=== PATIENT | male | born 1965 | race Caucasian/White ===

== ENCOUNTER → 2018-09-29 | Outpatient (CLI) | payer OTHER ==
--- NOTE | 2018-09-29 14:34 | CT ---
EXAMINATION TYPE: CT abdomen pelvis wo con DATE OF EXAM: 09/29/2018 COMPARISON: None HISTORY: Left flank pain, hx of kidney stones CT DLP: 1006 mGycm Automated exposure control for dose reduction was used. TECHNIQUE: Helical acquisition of images was performed from the lung bases through the pelvis. FINDINGS: LUNG BASES: No significant abnormality is appreciated. LIVER/GB: Hepatic parenchyma is diffusely hypoattenuated in comparison to that of the spleen, most co mmonly seen in hepatic steatosis. This finding limits evaluation for hepatic masses. No gross evidenc e of hepatic mass is seen. No intrahepatic biliary ductal dilatation. Cholelithiasis is noted within the partially contracted gallbladder. PANCREAS: No significant abnormality is seen. SPLEEN: No significant abnormality is seen. ADRENALS: No significant abnormality is seen. KIDNEYS: There are 2 nonobstructing left renal calculi measuring 2 mm each and a 1.2 cm exophytic lef t renal cyst. Additional upper pole ill-defined left renal cyst is seen on coronal image 57. There is a 2 mm calculus within the urinary bladder just distal to the left ureterovesicular junction. Very m ild blunting of the left minor calyces are seen without judith hydronephrosis of the left kidney. Righ t kidney is unremarkable without hydronephrosis or nephrolithiasis. No perinephric fat stranding is s een. FREE AIR: No free air is visualized ADENOPATHY: No greater than 1 cm short axis lymph node in the abdomen or pelvis. URINARY BLADDER: Punctate calculus as described above. OSSEOUS STRUCTURES: Few nonspecific pelvic punctate sclerotic foci are seen each measuring approxima tely 1 mm. These are nonspecific although could relate to small bone islands. BOWEL: Appendix is surgically absent. No dilated large or small bowel. Few scattered colonic diverti cula are seen. Mild degree fecal stasis. Small ventral fat filled abdominal hernia is wide necked and supraumbilical. IMPRESSION: 1. THERE IS A 2 MM CALCULUS WITHIN THE URINARY BLADDER JUST DISTAL TO THE LEFT URETEROVESICULAR JUNCT ION. MILD BLUNTING OF THE LEFT CALYCES ARE SEEN WITHOUT JUDITH HYDRONEPHROSIS. 2. ADDITIONAL NONOBSTRUCTING LEFT RENAL CALCULI. 3. SIGMOID DIVERTICULOSIS WITHOUT EVIDENCE OF ACUTE DIVERTICULITIS. 4. MODERATE GRADE HEPATIC STEATOSIS. 5. CHOLELITHIASIS.
== END | disposition home or self-care (01) ==
LOC: RADCTMAIN 14:06
PROVIDERS: ATTEND Nurse Practitioner Adult Health
DX: N21.0 Calculus in bladder (principal); N20.0 Calculus of kidney; K57.30 Diverticulosis of large intestine without perforation or abscess without bleeding; K76.0 Fatty (change of) liver, not elsewhere classified; K80.20 Calculus of gallbladder without cholecystitis without obstruction
CPT/HCPCS: 74176

== ENCOUNTER → 2021-02-21 | Outpatient (CLI) | payer OTHER ==
--- NOTE | 2021-02-21 19:21 | CONS ---
CONSULTATION REASON FOR CONSULTATION: Sleep apnea. This 55-year-old male patient, referred to me for sleep apnea evaluation. His has noted that the patient is snoring loud and at times he is has been gasping for air. The patient goes to bed around 11:30 pm, wakes up 6:45 am in the morning. At times, he sleeps longer yet never the less, he is not feeling the refreshment that he is supposed to get from sleeping. He is waking up tired. During the day he does not have any major hypersomnia or sleepiness. He does not fall asleep during meetings or working hours. Onsted score is at 5. He works as an IT at [employer] He has pressures and oral appliance. He did not use it. His weight has been stable over the years with some modest few pounds weight gain. No sleep paralysis. No hallucinations. No cataplexy. No restlessness in lower extremities. No anxiety. No depression. No comorbidities. PAST MEDICAL HISTORY: Negative. PAST SURGICAL HISTORY: Appendectomy, vasectomy, kidney stones. DRUG ALLERGIES: PENICILLINS. OUTPATIENT MEDICATIONS: None. SOCIAL HISTORY: Nonsmoker. No history of alcoholism. No history of IV drugs. FAMILY HISTORY: Father had lymphoma and prostate cancer. Mother has hypertension, coronary artery disease and bypass surgery. REVIEW OF SYSTEMS: Fourteen-point review of system was done and positive findings are mentioned in history of present illness. PHYSICAL EXAMINATION: BP is 123/80, pulse rate is 61, respirations 16, temperature 97.2. Saturation 99% on room air. BMI 33.5. Onsted score is at 5. Neck size 15.5 inches. GENERAL appearance: Calm, comfortable. Head is atraumatic, normocephalic. NECK: Supple. There is no JVD. No goiter or neck masses. Slight overbite. Mallampati class 3. LUNGS: Clear to auscultation. HEART: Heart sounds are regular rate and rhythm. Normal S1, S2. No S3, S4. No murmurs. ABDOMEN: Soft. Nontender. No organomegaly. EXTREMITIES: No edema, no cyanosis or clubbing. NEUROLOGICALLY: The patient is awake and alert. There is no focal neurological deficits. IMPRESSION: 1. Questionable obstructive sleep apnea under investigation. Symptoms are essentially related to snoring. The patient has a slight overbite. Mallampati class 3. Onsted score is at 5. Body mass index is 33.5. Consider primary snoring versus underlying sleep breathing disorder. No other major comorbidities. PLAN: 1. Home sleep study testing. 2. Weight loss. 3. Avoid alcohol drinking and sleep on the side. 4. Consider on oral appliance if the patient turns out to have a mild case of obstructive sleep apnea and we can work it out with his dentist. CPAP therapy if the home sleep study showed severe obstructive sleep apnea. A final decision will be done based on the results of sleep study. MMODL / IJN: [id number] /
== END ==
LOC: SLEEP 16:15
PROVIDERS: ATTEND Internal Medicine Critical Care Medicine
DX: R06.83 Snoring (principal); Z88.0 Allergy status to penicillin
CPT/HCPCS: 99211

== ENCOUNTER → 2021-06-27 | Outpatient (CLI) | payer OTHER ==
--- NOTE | 2021-06-27 16:16 | PN ---
PROGRESS NOTE SLEEP CENTER PROGRESS NOTE: Singh presented to the sleep center back in March of 2021 for symptoms of fatigue and some limited sleepiness. Goodland score was only 5. He denied having any major hypersomnia at that point. He works for an [employer] company and he denied having any major comorbidities. His weight has remained stable. Note that he underwent a home sleep study that was completed on 03/21/2021. At that time the patient was found to have moderate to severe disease with an AHI of 17.8 and the patient demonstrated significant nocturnal oxygen desaturation where the pulse ox was at or below 88% for 50 minutes of the sleep time, accounting for 10% of the overall sleep study. His minimum pulse ox was 64%. I contacted the patient with the results back then and I offered him CPAP therapy versus an oral appliance. He was not interested in treatment, knowing that he was not having major symptoms at that point. Since then, the patient's condition has gotten worse. The patient is coming in for further advice regarding sleep apnea; he seems to be much more interested in CPAP therapy. His Goodland score remains 5. No angina. No palpitations. No shortness of breath. No chest pain. No heartburn. No other new complaints otherwise. PHYSICAL EXAMINATION: VITAL SIGNS: BP is 138/86, pulse 66, respirations 16, temperature 97.8, saturation 98% on room air. Height is 5 feet 1 inch, weight is 232, BMI is 32.3. GENERAL APPEARANCE: Calm, comfortable. HEAD: Atraumatic, normocephalic. Neck is supple. No JVD. No goiter or neck masses. Mallampati class IV. LUNGS: Clear to auscultation. Heart sounds are regular rate and rhythm. Normal S1, S2. No S3, S4. No murmurs. ABDOMEN: Soft, nontender. No organomegaly. EXTREMITIES: No edema. No cyanosis or clubbing. IMPRESSION: 1. Obstructive sleep apnea, symptomatic. AHI of 18. The patient's home sleep study was completed on 03/21/2021 and the patient is interested in CPAP therapy at this point, as his symptoms of sleep apnea have gotten significantly worse since his last evaluation 3 months ago. 2. Nocturnal oxygen desaturation with a minimum pulse ox of 63% and the patient spending approximately 50% of his sleep time at a pulse ox of 88% or below. 3. Loud snoring. 4. Chronic hypersomnia. 5. Obesity with a BMI of 32.3 with interval weight loss of a few pounds. PLAN: 1. Proceed with CPAP therapy. The patient will be set at a minimum pressure of 5, maximum of 15. 2. Offer the patient a DreamWear gel pillow a nose mask. We will also look at alternatives, including the possibility of full-face mask. 3. The patient will obtain a CPAP machine. The patient will see me back in 30 to 90 days to assess clinical response and compliance. Further adjustments of his treatment will be done here in the sleep center. The patient is hopeful that his symptoms of fatigue and sleepiness will improve while on CPAP therapy. I am hoping the same. Will monitor his progress. Will continue to follow. Will make further recommendations based on his symptoms. LEIGH ANN / MERCY: [id number] /
== END ==
LOC: SLEEP 13:03
PROVIDERS: ATTEND Internal Medicine Critical Care Medicine
DX: G47.33 Obstructive sleep apnea (adult) (pediatric) (principal); G47.36 Sleep related hypoventilation in conditions classified elsewhere; E66.9 Obesity, unspecified; Z68.32 Body mass index [BMI] 32.0-32.9, adult; Z99.89 Dependence on other enabling machines and devices

== ENCOUNTER → 2021-10-17 | Outpatient (CLI) | payer OTHER ==
--- NOTE | 2021-10-17 14:40 | P.PN ---
Subjective Progress Note Date: 10/17/21 this is a 56-year-old male patient was diagnosed with obstructive sleep apnea and the patient is coming in for a compliance check. Diagnosis established recently and the patient was found to have moderate to severe disease with an AHI of 18 and the patient is currently on a CPAP unit which is secondary mode of a APAP 5/50 cm of water. The patient is also using dreamware under the nose mask, medium white. On today's evaluation, the patient reports ongoing improvement in the clinical response and the compliancy. Snoring is completely subsided and the reports that his sleep is quite silent and he is not making any snoring vibrations or noises. Based on his 30 day compliance data was collected between 08/23/2019 12 09/21/2021, the patient has been averaging around 5 hours and 22 minutes of CPAP use per night and a CPAP use for more than 4 hours around 83%. The patient has noted increased humidification through the climate line and the patient is up to humidity level down to 2 and a temperature of the tubing is currently at 70F. Based on the compliancy, the leak is nor that of 10 L per minute and the patient's AHI is down to 0.8 while on treatment and the 95th percentile pressure is around 11 cm of water. Weight is up and around 5 pounds in the patient's current body weight is 241. Objective - Exam BP is 136/79, pulse is 67, respirations 16, temperature 97.5, Albany scores at 5, oxygen saturation is 94%, weight is 241. The patient appeared well nourished and normally developed. Vital signs as documented. Head exam is unremarkable. No scleral icterus or corneal arcus noted. Neck is without jugular venous distension, thyromegaly, or carotid bruits. Carotid upstrokes are brisk bilaterally. Lungs are clear to auscultation and percussion. Cardiac exam reveals the PMI to be normally sized and situated. Rhythm is regular. First and second heart sounds normal. No murmurs, rubs or gallops. Abdominal exam reveals normal bowel sounds, no masses, no organomegaly and no aortic enlargement. Extremities are nonedematous and both femoral and pedal pulses are normal.Examination of the skin revealed no evidence of significant rashes, suspicious appearing nevi or other concerning lesions.Neurologically, the patient is awake and alert and the patient does not have any focal neurological deficit. Cranial nerves are essentially intact. Assessment and Plan Plan: obstructive sleep apnea, moderate to severe with an HIV. The patient currently is receiving therapy and she was successful and the patient is Compliant Snoring, recovered with CPAP therapy Hypersomnia, improved with CPAP therapy and Albany score is down to 5 Obesity Plan Continue CPAP therapy at pressures of 5/15, APAP mode, and the patient is using a dreamware under the nose nasal mask keep the humidity level at 2 and a temperature of the tubing at 70F Encourage weight loss Maintain good sleep hygiene measures Treatment is successful EPR will be set at 3 we'll continue to follow and the patient will see back if year's time.
== END ==
LOC: SLEEP 13:42
PROVIDERS: ATTEND Internal Medicine Critical Care Medicine
DX: G47.33 Obstructive sleep apnea (adult) (pediatric) (principal); E66.9 Obesity, unspecified; Z21 Asymptomatic human immunodeficiency virus [HIV] infection status; Z99.89 Dependence on other enabling machines and devices

== ENCOUNTER 2022-02-15 11:06 | Day surgery (SDC) | payer OTHER ==
[~2022-02-15 11:06] MED LIST: HYDROmorphone 0.5 MG/0.5 ML SYRINGE IVP PRN; LACTATED RINGERS 1,000 ML IV SCH; fentaNYL (PF) 50 MCG/ML 2 ML AMP IV PRN
--- NOTE | 2022-02-15 11:49 | XR ---
EXAMINATION TYPE: XR KUB DATE OF EXAM: 02/15/2022 Comparison: CT 20/02/2019 Clinical History: 56-year-old male kidney stones Findings: Pelvic phleboliths. Additional densities projecting at the medial right iliac crest. When correlating with 2019 CT, this seems to reflect prior surgical material relating to appendectomy. Otherwise, no suspicious calcifications seen. Apin-[id number] stool proximal and mid colon. Nonobstructive bowel g as pattern. Impression: Some densities projecting at the right iliac crest appear to correspond to surgical material of prior appendectomy when correlating with the 2019 CT. No definite suspicious calcifications are radiograph ically apparent.
--- NOTE | 2022-02-15 12:17 | P.GSHP ---
History of Present Illness H&P Date: 02/15/22 Chief Complaint: Right renal colic The patient is a 56-year-old white male who passed a 5 mm calculus 10 years ago. Beginning in late January, he experienced lower back pain and dark urine. On the evening of February 03, he developed severe right flank pain associated with nausea and vomiting. He presented to the ER and underwent a computed tomography scan, revealing mild right hydronephrosis due to a 4-5 mm right proximal ureteral calculus. He was admitted overnight, and alternative treatment options were reviewed with him, both medical and surgical. He elected to be treated with medical expulsion therapy. However, he has developed intractable symptoms and desires ureteroscopic removal of the calculus. - Genitourinary (Male) Genitourinary: Reports flank pain, Reports kidney stones, Denies dysuria, Denies hematuria Past Medical History Past Medical History: Asthma, Diabetes Mellitus Additional Past Medical History / Comment(s): kidney stones, seen in [facility] approx. week ago, hx. lumbar herniated disc History of Any Multi-Drug Resistant Organisms: None Reported Past Surgical History: Appendectomy, Hernia Repair Past Anesthesia/Blood Transfusion Reactions: Postoperative Nausea & Vomiting (PONV) Smoking Status: Never smoker - Past Family History Mother Family Medical History: No Reported History Medications and Allergies Home Medications Medication Instructions Recorded Confirmed Type Cholecalciferol [Vitamin D3 (25 25 mcg PO DAILY 02/13/22 02/13/22 History Mcg = 1000 Iu)] Ketorolac [Toradol] 10 mg PO Q6HR PRN 02/13/22 02/13/22 History Tamsulosin HCl [Flomax] 0.4 mg PO DAILY 02/13/22 02/13/22 History metFORMIN HCL [Glucophage] 500 mg PO QAM 02/13/22 02/13/22 History Allergies Allergy/AdvReac Type Severity Reaction Status Date / Time Penicillins Allergy Dyspnea Verified 02/13/22 15:23 Surgical - Exam - General well developed, well nourished, no distress - Neck no masses, trachea midline - Respiratory normal respiratory effort - Abdomen Abdomen: soft, non tender, no guarding, no rigid, no rebound - Genitourinary normal penis with no external lesions, testicles non-tender - Psychiatric oriented to time, oriented to person, oriented to place, speech is normal, memory intact Results - Imaging CT scan - abdomen: report reviewed, image reviewed Assessment and Plan (1) Calculus of ureter Status: Acute Code(s): N20.1 - CALCULUS OF URETER SNOMED Code(s): 00966031 Plan: Cystoscopy, right retrograde pyelogram, right ureteroscopy with Holmium laser lithotripsy and possible stone basketing, possible right ureteral stent insertion. Procedure has been reviewed in detail with the patient and his . They have been made aware of potential risks, which include anesthesia, b leeding, infection, inability to remove the calculus, and ureteral injury.
[2022-02-15 12:49] LABS: Glucose,Whole Blood 106 mg/dL (70-110)
[2022-02-15] MEDS ORDERED: ONDANSETRON 4 MG/2 ML VIAL IVP ONE (12:55)
[2022-02-15] MEDS ORDERED: DEXAMETHASONE SOD PHOSPHATE 4 MG/ML 1 ML VIAL IVP ONE (12:55)
[2022-02-15] MEDS ORDERED: ONDANSETRON 4 MG/2 ML VIAL ONE (12:56)
[2022-02-15] MEDS ORDERED: MIDAZOLAM 2 MG/2 ML VIAL ONE (13:32)
[2022-02-15] MEDS ORDERED: LIDOCAINE 2% INJ 20 MG/ML (2 ML VIAL) ONE (13:32)
[2022-02-15] MEDS ORDERED: GLYCOPYRROLATE 0.2 MG/ML 2 ML VIAL ONE (13:32)
[2022-02-15] MEDS ORDERED: PROPOFOL 10 MG/ML 20 ML VIAL IV ONE (13:32)
[2022-02-15] MEDS ORDERED: fentaNYL (PF) 50 MCG/ML 2 ML AMP ONE (13:32)
[2022-02-15] MEDS ORDERED: SUCCINYLCHOLINE CHLORIDE 200 MG/10 ML VIAL IV ONE (13:32)
[2022-02-15] MEDS ORDERED: ROCURONIUM 10 MG/ML (5 ML VIAL) IV ONE (13:32)
[2022-02-15] MEDS ORDERED: NEOSTIGMINE 1 MG/ML 10 ML VIAL ONE (13:32)
[2022-02-15] MEDS ORDERED: IOPAMIDOL-300 50ML BTL MISCELLANE ONE (13:59)
[2022-02-15 15:05] VITALS: TEMP 98.4
[2022-02-15 15:07] VITALS: RESP 16
--- NOTE | 2022-02-15 15:08 | P.OP ---
Date of Procedure: 02/15/22 Preoperative Diagnosis: Right ureteral calculus Postoperative Diagnosis: Same Procedure(s) Performed: Cystoscopy, right retrograde pyelogram, right ureteroscopy with Holmium laser lithotripsy and stone basketing, right ureteral stent insertion Anesthesia: RADHA Surgeon: Trace Cho Estimated Blood Loss (ml): 5 IV fluids (ml): 500 Pathology: other (Calculus fragments, sent for chemical analysis) Condition: stable Disposition: PACU Indications for Procedure: The patient is a 56-year-old white male who passed a 5 mm calculus 10 years ago. Beginning in late January, he experienced lower back pain and dark urine. On the evening of February 03, he developed severe right flank pain associated with nausea and vomiting. He presented to the ER and underwent a computed tomography scan, revealing mild right hydronephrosis due to a 4-5 mm right proximal ureteral calculus. He was admitted overnight, and alternative treatment options were reviewed with him, both medical and surgical. He elected to be treated with medical expulsion therapy. However, he has developed intractable symptoms and desires ureteroscopic removal of the calculus. Operative Findings: Right proximal ureteral calculus, fragmented completely. Description of Procedure: The patient was taken to the operating room and placed in the dorsolithotomy position, with legs supported in Siddharth stirrups. The external genitalia was prepped and draped sterilely. The 30 lens was used to introduce the 21-Dutch Howard cystoscopic sheath through the urethra and into the bladder under direct vision. The prostatic urethra showed evidence of mild lateral lobe enlargement. The bladder was examined in its entirety. Both ureteral orifices were normal anatomic location and configuration, and clear urine effluxed from both. No tumors or foreign bodies were seen. Using a 10-Dutch cone-tipped catheter, a right retrograde pyelogram was performed. A questionable irregularity was seen within the right proximal ureter. The Howard semirigid ureteroscope was advanced into the bladder, and the right ureteral orifice was cannulated. the ureteroscope was slowly advanced under direct vision, up to the proximal ureter, but a calculus was not seen. A 0.038 inch Glidewire was passed through the ureteroscope, which was withdrawn. An 11/13-Dutch ureteral access catheter was passed over the wire, up to the proximal ureter. The Howard Mobincubea flexible ureteroscope was then passed through the ureteral access catheter sheath and advanced under direct vision. The calculus was identified within the proximal ureter. The 200 micron Holmium laser probe was passed through the ureteroscope, and lithotripsy was performed. As the edges of the calculus were fragmented, the course of the calculus refluxed into a lower pole calyx. Lithotripsy was completed within that calyx, primarily via a dusting mode. A 1.9-Dutch nitinol basket was used to retrieve several fragments from that calyx. These fragments measured only approximately 1 mm in size and were sent for chemical analysis. The ureteroscope was removed. The Glidewire was passed through the ureteral access sheath, which was removed. The Glidewire was backloaded into the cystoscope, which was passed into the bladder. A 26 cm, or 0.8-Dutch double-J ureteral stent was placed over the wire. Proper stent positioning was verified fluoroscopically and endoscopically. The bladder was emptied and the cystoscope removed. The patient tolerated the procedure well and was taken to the recovery room in stable condition. MUSIC ROCKS Report: Procedure Acuity: Urgent Stone Size and Location: 5 mm, right proximal ureter Ureteral Dilation: No Ureteral Access Sheath Used: Yes Stone Sent for Analysis: Yes All Stones/Fragments Were Removed with a Basket: Yes Complications: No Preoperative Antibiotics Given: Yes Stent Placed: Yes If Stent Placed, Was String Left Attached: No If Stent Placed, When is it to be Removed: 1 week Discharge Medications: Tamsulosin, Toradol
[2022-02-15] MEDS ORDERED: LACTATED RINGERS 1,000 ML IV ONE (15:24)
--- NOTE | 2022-02-15 15:43 | FL ---
EXAMINATION TYPE: FL guidance operating room DATE OF EXAM: 02/15/2022 FLUOROSCOPY Fluoroscopy time of 1 minute 28 seconds was used during right ureteral stone urologic intervention. 3 image/s document/s the procedure.
[2022-02-15 15:53] VITALS: BP 136/76; PULSE 58
== END 2022-02-15 16:11 | disposition home or self-care (01) ==
LOC: OR 11:06
PROVIDERS: ATTEND Urology
DX: N20.2 Calculus of kidney with calculus of ureter (principal); R73.03 Prediabetes; J45.909 Unspecified asthma, uncomplicated; K91.0 Vomiting following gastrointestinal surgery; Z90.89 Acquired absence of other organs; Z98.890 Other specified postprocedural states; Z79.84 Long term (current) use of oral hypoglycemic drugs; Z79.899 Other long term (current) drug therapy; Z88.0 Allergy status to penicillin
CPT/HCPCS: 52356; 82365; 74018; C2625; C1758; C1769; J2250; J0330; J1100; J2710; J0690; J2405; J3010; J2704; J1170; Q9967; J2001